=== PATIENT | male | born 1975 | race Native Hawaiian/Other Pacific Islander ===

== ENCOUNTER 2020-12-10 12:48 | Emergency (ER) | payer MEDICAID ==
[~2020-12-10] VITALS: Ht 177.8 cm; Wt 104.3 kg
[2020-12-10 13:02] VITALS: Ht 177.8 cm; Wt 104.3 kg
[2020-12-10] MEDS ORDERED: MOT600 PO (14:05)
[2020-12-10] MEDS ORDERED: KEF500 PO (14:05)
[2020-12-10 14:26] VITALS: BP 130/78
== END 2020-12-10 14:26 | disposition home or self-care (01) ==
LOC: ED 12:48
DX: S90.31XA Contusion of right foot, initial encounter (principal); F17.210 Nicotine dependence, cigarettes, uncomplicated; L03.115 Cellulitis of right lower limb; W22.8XXA Striking against or struck by other objects, initial encounter; Y93.89 Activity, other specified; Y92.89 Other specified places as the place of occurrence of the external cause; Y99.8 Other external cause status